=== PATIENT | male | born 1960 | race Caucasian/White ===

== ENCOUNTER → 2021-04-04 05:59 | Outpatient (CLI) | payer OTHER ==
[~2021-04-04 05:59] MED LIST: COZAAR25 MG PO; JANUMET 50-1,01 EACH PO; VYTORIN 10-401 EACH PO
== END | disposition home or self-care (01) ==
LOC: LAB 05:59
PROVIDERS: ATTEND Otolaryngology Otology & Neurotology
DX: Z03.818 Encounter for observation for suspected exposure to other biological agents ruled out (principal)

== ENCOUNTER 2021-04-04 06:15 | Day surgery (SDC) | payer OTHER | END 2021-04-04 11:55 | disposition home or self-care (01) | LOC: CIR.AMB 06:15 | PROVIDERS: ATTEND Otolaryngology Otology & Neurotology | DX: H91.22 Sudden idiopathic hearing loss, left ear (principal); Z20.822 Contact with and (suspected) exposure to COVID-19 | CPT/HCPCS: 69801; 96372; J1100 ==